=== PATIENT | female | born 1985 | race Caucasian/White ===

== ENCOUNTER → 2021-07-20 | Outpatient (CLI) | payer OTHER | LOC: EXRD 15:20 | DX: M25.561 Pain in right knee (principal) | CPT/HCPCS: 73562 ==

== ENCOUNTER → 2021-08-17 | Outpatient (CLI) | payer OTHER | LOC: EXRD 14:29 | DX: M25.551 Pain in right hip (principal) | CPT/HCPCS: 72100 ==